=== PATIENT | male | born 1955 | race Caucasian/White ===

== ENCOUNTER 2017-04-22 13:18 | Inpatient (IN) | payer BC ==
[~2017-04-22] VITALS: Ht 170.2 cm; Wt 113.3 kg
--- NOTE | ~2017-04-22 | EEG ---
PATIENT:VALERIY MCCORD DATE OF SERVICE: 04/22/17 MEDICAL RECORD: [id number] DATE OF : 59 LOCATION:D.212 D.M2 ADMISSION DATE: 04/22/17 REFERRING PHYSICIAN: INTERPRETING PHYSICIAN: FELICITA ORNELAS MD DATE OF SERVICE: 04/23/2017 Electroencephalographic Report Referred by myself as an inpatient in room 2121. ELECTROENCEPHALOGRAM NUMBER: [id number]. DATE OF EXAMINATION: 04/23/2017 at 11:10 a.m. TECHNICAL DATA: This electroencephalographic recording consists of approximately 20 minutes of data collection utilizing the international 10/20 system of electrode placement and both referential and non-referential montages. Sixteen channels of electrocerebral recording are accompanied by a 17th channel dedicated to the electrocardiographic rhythm and 2 channels of electromyographic recording. Recording is performed in the awake and drowsy states utilizing activation by photic stimulation. ELECTROENCEPHALOGRAPHIC DATA: The awake state comprises approximately 40% of the recorded electrocerebral activity. Electromyographic artifact is prominent and rapid eye movements are seen. The posterior dominant background consists of a symmetric semi-arrhythmic waxing and waning 10-11 Hz alpha activity, which is suppressed by eye opening. The drowsy state comprises the remaining portion of the recorded electrocerebral activity. Electromyographic artifact is diminished and rapid eye movements are not seen. The posterior dominant background is relatively suppressed. Also seen is an intermittent irregular generalized and symmetric 2-3 Hz delta slowing, which occurs for periods of 1-2 seconds approximately once every 2-3 pages. No abnormal nor focal slowing is identified. No epileptiform discharges are seen. Photic stimulation induces no abnormal change in the recorded electrocerebral activity. INTERPRETATION: Normal (awake and drowsy). This is a normal electroencephalographic recording. TRANSINT:[id number] Voice Confirmation ID: [id number] DOCUMENT ID: [id number] ELECTROENCEPHALOGRAM REPORT [id number] VALERIY MCCORD FELICITA ORNELAS MD CC: [id number] DICTATION DATE: 04/24/17 075 TITLE MANAGER: 04/25/177 DIS IN 04/23/[address] [facility] [address] [place] [address]
[2017-04-22 13:59] LABS: BASOPHILS 0.3 % (0-2); EOSINOPHILS 5.4 % (0-7); HEMATOCRIT 44.2 % (42.0-54.0); HEMOGLOBIN 14.1 g/dL (13.5-17.5); IMMATURE GRANULOCYTES 0.1 % (0-5); LYMPHOCYTES 31.6 % (15-50); MCH 20.6 pg (26.0-34.0); MCHC 31.9 g/dL (31.0-37.0); MCV 64.7 fL (80.0-100.0); MEAN PLATELET VOLUME 10.3 fL (7.4-10.4); MONOCYTES 16.2 % (2-11); NEUTROPHILS 46.4 % (40-80); PLATELET COUNT 196 10x3/uL (130-400); WBC 7.4 10x3/uL (4.8-10.8)
[2017-04-22 14:23] VITALS: BP 154/99; Ht 170.2 cm; Wt 113.3 kg
[2017-04-22 14:28] LABS: ALBUMIN 3.6 g/dL (3.4-5.0); ALKALINE PHOSPHATASE 123 U/L (46-116); ALT (SGPT) 32 U/L (10-68); BILIRUBIN - TOTAL 0.38 mg/dL (0.2-1.3); CALC OSMOLALITY 280 mosm/kg (275-300); CALCIUM 8.3 mg/dL (8.5-10.1); CARBON DIOXIDE 29.4 mmol/L (21.0-32.0); CHLORIDE - SERUM 104 mmol/L (98-107); CKMB 0.8 U/L (0.0-3.6); CREATINE KINASE 104 UL (21-232); CREATININE - SERUM 1.1 mg/dL (0.6-1.3); GLUCOSE 119 mg/dL (74-106); POTASSIUM - SERUM 4.2 mmol/L (3.5-5.1); PROTEIN - SERUM 6.7 g/dL (6.4-8.2); SODIUM 140 mmol/L (136-145); UREA NITROGEN 14 mg/dL (7-18); eGFR NON AFRICAN AMERICAN 73 mL/min (90-120)
[2017-04-22 14:29] LABS: TROPONIN-I < 0.017 ng/mL (0.000-0.060)
--- NOTE | 2017-04-22 14:33 | NUR ---
DIRECT ADMIT FROM OFFICE. IV STARTED WITH 20 GA ON 1ST ATTEMPT. SL AT THIS TIME. ADMISSIOM HX AND ASSESSMENT DONE. NKA. EKG DONE. MONITOR SHOWS SR WITH OCC PVC AT RATE OF 63. WHEEZING ON RESP. WITH ACCULSATION MORE WHEEZING ON THE RIGHT SIDE. SIDE RAILS ARE PADDED FOR SEIZURE PRECAUTIONS ORDERED.
[2017-04-22 14:48] LABS: RBC 6.83 10x6/uL (4.20-6.10)
--- NOTE | 2017-04-22 14:52 | NUR ---
BURIAL NEEDS SALESPERSONCLERK Chio ALARCON CALLED [facility]'S OFFICE AND DR. PAN FOR CONSULTS.
--- NOTE | 2017-04-22 15:48 | NUR ---
CRITICAL LAB [facility] OF 6.83 CALLED TO [facility]'S OFFICE. PT MADE NPO FOR CT SCAN
--- NOTE | 2017-04-22 16:52 | NUR ---
BACK FROM CT. CAN EAT AND DRINK NOW.
--- NOTE | 2017-04-22 16:58 | NUR ---
SCDS EXPLAINED TO PT. HE REFUES. PT IS AMBULATORY IN ROOM.
[2017-04-22 19:23] LABS: BASOPHILS 0.6 % (0-2); EOSINOPHILS 5.5 % (0-7); HEMATOCRIT 43.9 % (42.0-54.0); HEMOGLOBIN 13.8 g/dL (13.5-17.5); IMMATURE GRANULOCYTES 0.1 % (0-5); MCH 20.4 pg (26.0-34.0); MCHC 31.4 g/dL (31.0-37.0); MCV 64.9 fL (80.0-100.0); MONOCYTES 14.6 % (2-11); NEUTROPHILS 42.2 % (40-80); PLATELET COUNT 181 10x3/uL (130-400); RDW 16.2 % (11.5-14.5); WBC 6.8 10x3/uL (4.8-10.8)
[2017-04-22 19:54] LABS: RBC 6.76 10x6/uL (4.20-6.10)
[2017-04-22 20:00] VITALS: BP 157/85
[2017-04-22 20:06] LABS: CKMB 0.8 U/L (0.0-3.6); CREATINE KINASE 85 UL (21-232); TROPONIN-I < 0.017 ng/mL (0.000-0.060)
--- NOTE | 2017-04-22 20:07 | NUR ---
PT RESTING IN BED. ALERT/ORIENTED. SR WITH PVCS ON TELEMETRY. NONLABORED RESPIRATIONS ON ROOM AIR. DRY/HACKING COUGH. PIV TO LEFT HAND WITH NS @ 100ML/HR. ASSESSMENT COMPLETED. REVIEWED PLAN OF CARE. CALL LIGHT IN REACH.
[2017-04-23] VITALS: BP 125/75
[2017-04-23 02:10] LABS: CKMB 0.8 U/L (0.0-3.6); CREATINE KINASE 96 UL (21-232)
[2017-04-23 02:11] LABS: TROPONIN-I < 0.017 ng/mL (0.000-0.060)
[2017-04-23 05:24] LABS: BASOPHILS 0.3 % (0-2); EOSINOPHILS 5.3 % (0-7); HEMATOCRIT 44.3 % (42.0-54.0); HEMOGLOBIN 13.9 g/dL (13.5-17.5); IMMATURE GRANULOCYTES 0.1 % (0-5); LYMPHOCYTES 38.5 % (15-50); MCH 20.3 pg (26.0-34.0); MCHC 31.4 g/dL (31.0-37.0); MCV 64.7 fL (80.0-100.0); MEAN PLATELET VOLUME 10.2 fL (7.4-10.4); MONOCYTES 13.7 % (2-11); NEUTROPHILS 42.1 % (40-80); PLATELET COUNT 177 10x3/uL (130-400); RDW 16.2 % (11.5-14.5); WBC 7.2 10x3/uL (4.8-10.8)
[2017-04-23 06:04] LABS: RBC 6.85 10x6/uL (4.20-6.10)
--- NOTE | 2017-04-23 06:14 | NUR ---
PT HAS RESTED WITH NO DISTRESS. IVF INFUSING. FAMILY X 1 AT BEDSIDE. NO REPORTS OF CHEST PAIN. CPOC. CALL LIGHT IN REACH.
[2017-04-23 06:16] LABS: ALBUMIN 3.2 g/dL (3.4-5.0); ALKALINE PHOSPHATASE 114 U/L (46-116); ALT (SGPT) 28 U/L (10-68); CALC OSMOLALITY 277 mosm/kg (275-300); CHLORIDE - SERUM 104 mmol/L (98-107); GLUCOSE 107 mg/dL (74-106); PROTEIN - SERUM 6.3 g/dL (6.4-8.2); SODIUM 139 mmol/L (136-145); UREA NITROGEN 12 mg/dL (7-18); eGFR NON AFRICAN AMERICAN 81 mL/min (90-120)
[2017-04-23 06:20] LABS: POTASSIUM - SERUM 4.9 mmol/L (3.5-5.1)
--- NOTE | 2017-04-23 07:20 | NUR ---
AM ROUNDS- PT IN BED, DENIES ANY NEEDS AT THIS TIME. LT HAND IV RUNNING NS AT 100. PT'S URINAL EMPTIED. CALL LIGHT IN REACH, NAD NOTED, WILL CONTINUE TO MONITOR.
[2017-04-23 09:06] VITALS: BP 122/83
--- NOTE | 2017-04-23 10:21 | NUR ---
CALLED [facility] AND INFORMED THEM THAT PT WANTED TO KNOW WHAT TIME HE WAS GOING FOR EEG, THEY INFOMRED ME THAT THEY WOULD BE HERE IN A FEW MINIUTES. WILL LET PT KNOW.
--- NOTE | 2017-04-23 11:03 | NUR ---
CALLED DR. HOGUE'S OFFICE AND LEFT A MESSAGE WITH HIS NURSE THAT PT HAS BEEN CLEARED BY CARDIOLOGY AND IS HAVING EEG DONE AT THIS TIME.
[2017-04-23 11:57] VITALS: BP 148/86
[2017-04-23] MEDS ORDERED: OMNICEF300 MG PO (12:13)
--- NOTE | 2017-04-23 14:17 | NUR ---
CALLED DR. ORNELAS'S OFFICE, LEFT A MESSAGE WITH HIS NURSE, WAITING DIRECTOR OF DIGITAL PLATFORMS BACK.
[2017-04-23] MEDS ORDERED: VENTOLIN HFA18 GM INH (14:38)
--- NOTE | 2017-04-23 15:14 | NUR ---
Patient Name: VALERIY MCCORD Admission Status: Elective Accout number: [id number] Admission Date: 04-22-2017 : 1955 Admission Diagnosis:CHEST PAIN, UNSPECIFIED Attending: CATALINA Current LOS: 1 Anticipated DC Date: 04-23-2017 Planned Disposition: Home Primary Insurance: [facility] [employer] [facility] Discharge Planning Comments: CM MET WITH PATIENT AND KULDIP IN ROOM FOR DISCHARGE PLANNING/NEEDS. PATIENT SAID HE PLANS TO RETURN HOME. HE EXPRESSED CONCERNS FOR NOT KNOWING WHAT IS WRONG WITH HIM, AND WHAT IS CAUSING HIS COUGH. HE IS THANKFUL FOR THE STUFF RULED OUT. HE DENIES ANY NEEDS AT DISCHARGE. QUESTIONING HOW LONG IT WILL TAKE FOR HIS PAPERS. IT WAS EXPLAINED THAT WE HAD JUST OFICIALLY GOT THE ORDERS AND IT WOULD TAKE A MOMENT FOR THE PAPERWORK TO BE PREPARED. EXPLAINED THAT I WOULD RELAY THAT THEY WERE READY TO GO. Income Tax Investigator: Jaclyn Bello Is the patient Alert and Oriented? Yes * How many steps to enter\exit or inside your home? 0 * PCP DR BRUMFIELD * Pharmacy [facility] * Preadmission Environment Home with Family * ADLs Independent * Equipment None * List name and contact numbers for known caregivers / representatives who currently or will assist patient after discharge: KULDIP MCCORD, , * Community resources currently utilized None * Additional services required to return to the preadmission environment? No * Can the patient safely return to the preadmission environment? Yes * Has this patient been hospitalized within the prior 30 days at any hospital? No
--- NOTE | 2017-04-23 15:38 | NUR ---
PROVIDED WRITTEN AND VERBAL DISCHARGE INSTRUTIONS TO PT AND , BOTH VERBALIZED UNDERSTANDING REGARDING INSTRUCTIONS. D/C LEFT HAND IV, TIP INTACT. PT READY FOR A WHEELCHAIR. 1548- PT LEFT UNIT VIA WHEELCHAIR, ACCOMPANIED BY , NAD NOTED.
[2017-04-25 18:10] LABS: HGB - A 94.5 % (94.0-98.0); HGB - A2 5.5 % (0.7-3.1); HGB - INTERPRETATION Note: (()); HGB - SOLUBILITY Negative (Negative)
== END 2017-04-23 15:51 | disposition home or self-care (01) | DRG 195 ==
LOC: D.M2 13:18
PROVIDERS: Psychiatry & Neurology Neurology; ADMIT Family Medicine
DX: J18.9 Pneumonia, unspecified organism (principal); E83.51 Hypocalcemia; Z87.891 Personal history of nicotine dependence; R07.89 Other chest pain; R55 Syncope and collapse

== ENCOUNTER → 2017-07-30 16:07 | Outpatient (CLI) | payer BC ==
[2017-04-22 14:23] VITALS: BMI 39.1
[~2017-07-30 16:07] MED LIST: OMNICEF300 MG PO; VENTOLIN HFA18 GM INH
== END | disposition home or self-care (01) ==
LOC: D.CT 16:07
DX: R05 Cough (principal)

== ENCOUNTER → 2019-09-08 14:00 | Outpatient (CLI) | payer BC ==
[2017-04-22 14:23] VITALS: BMI 39.1
== END | disposition home or self-care (01) ==
LOC: D.CT 08:00
PROVIDERS: ATTEND Internal Medicine Gastroenterology
DX: R89.7 Abnormal histological findings in specimens from other organs, systems and tissues (principal)

== ENCOUNTER 2021-01-26 06:34 | Emergency (ER) | payer BC ==
[~2021-01-26] VITALS: Ht 170.2 cm; Wt 125.0 kg
[2021-01-26 06:40] VITALS: Ht 170.2 cm; Wt 125.0 kg
[2021-01-26 07:08] LABS: BASOPHILS 0.2 % (0-2); EOSINOPHILS 2.5 % (0-7); HEMOGLOBIN 12.7 g/dL (13.5-17.5); IMMATURE GRANULOCYTES 0.1 % (0-5); LYMPHOCYTE ABS# 2.94 10x3/uL (1.32-3.57); LYMPHOCYTES 35.6 % (15-50); MCHC 31.8 g/dL (31.0-37.0); MCV 62.9 fL (80.0-100.0); MEAN PLATELET VOLUME 9.2 fL (7.4-10.4); MONOCYTES 10.9 % (2-11); NEUTROPHIL ABS# 4.19 10x3/uL (1.78-5.38); NEUTROPHILS 50.7 % (40-80); PLATELET COUNT 199 10x3/uL (130-400); RBC 6.36 10x6/uL (4.20-6.10); RDW 15.3 % (11.5-14.5); WBC 8.3 10x3/uL (4.8-10.8)
[2021-01-26 07:13] LABS: APTT 25.6 SECONDS (22.8-39.4); INR 1.13 (0.85-1.17); PROTIME 13.5 SECONDS (11.6-15.0)
[2021-01-26 07:14] LABS: CALC OSMOLALITY 284 mosm/kg (275-300); CALCIUM 8.3 mg/dL (8.5-10.1); CARBON DIOXIDE 24.9 mmol/L (21.0-32.0); CHLORIDE - SERUM 106 mmol/L (98-107); POTASSIUM - SERUM 3.6 mmol/L (3.5-5.1); SODIUM 140 mmol/L (136-145); UREA NITROGEN 20 mg/dL (7-18); eGFR NON AFRICAN AMERICAN 80 mL/min (90-120)
[2021-01-26 07:15] LABS: GLUCOSE 159 mg/dL (74-106)
[2021-01-26 07:30] LABS: ALBUMIN 3.6 g/dL (3.4-5.0); ALKALINE PHOSPHATASE 124 U/L (30-120); ALT (SGPT) 41 U/L (10-68); CKMB 1.9 U/L (0.0-3.6); CREATINE KINASE 157 UL (21-232); MAGNESIUM - SERUM 1.9 mg/dL (1.8-2.4); PROTEIN - SERUM 6.8 g/dL (6.4-8.2)
[2021-01-26 07:32] LABS: TROPONIN-I < 0.017 ng/mL (0.000-0.060)
[2021-01-26 10:07] LABS: BILIRUBIN NEGATIVE (NEGATIVE); KETONE NEGATIVE (NEGATIVE); NITRITE NEGATIVE (NEGATIVE); UROBILINOGEN NORMAL mg/dL (< 2)
[2021-01-26] MEDS ORDERED: MECLIZINE HCL25 MG PO (11:56)
[2021-01-26] MEDS ORDERED: ZOFRAN ODT4 MG/UDTAB PO (11:56)
[2021-01-26 12:55] VITALS: BP 146/76
== END 2021-01-26 12:10 | disposition home or self-care (01) ==
LOC: D.ER 06:34
PROVIDERS: Emergency Medicine; Family Medicine
DX: R42 Dizziness and giddiness (principal); R11.0 Nausea; H93.19 Tinnitus, unspecified ear; R73.9 Hyperglycemia, unspecified

== ENCOUNTER → 2021-01-26 15:50 | Outpatient (CLI) | payer BC ==
[2021-01-26 06:40] VITALS: BMI 43.2
[~2021-01-26 15:50] MED LIST changes: +MECLIZINE HCL25 MG PO; +ZOFRAN ODT4 MG/UDTAB PO
== END | disposition home or self-care (01) ==
LOC: D.CT 15:50
PROVIDERS: ATTEND Family Medicine
DX: R10.11 Right upper quadrant pain (principal)

== ENCOUNTER → 2021-02-27 14:51 | Outpatient (CLI) | payer BC ==
[2021-01-26 06:40] VITALS: BMI 43.2
== END | disposition home or self-care (01) ==
LOC: D.US 14:51
PROVIDERS: ATTEND Internal Medicine Interventional Cardiology
DX: R07.9 Chest pain, unspecified (principal)

== ENCOUNTER → 2021-03-21 13:27 | Outpatient (CLI) | payer BC ==
[2021-01-26 06:40] VITALS: BMI 43.2
--- NOTE | ~2021-03-21 | EC ---
PATIENT:VALERIY MCCORD DATE OF SERVICE: 03/21/21 SEX: M MEDICAL RECORD: [id number] DATE OF : 59 LOCATION:[facility] AGE OF PATIENT: 65 ADMISSION DATE: 03/21/21 REFERRING PHYSICIAN: INTERPRETING PHYSICIAN: CÉSAR MARRUFO MD ECHOCARDIOGRAM REPORT ECHO CHARGES 4 ECHO COMPLETE Date: 03/21/21 CLINICAL DIAGNOSIS: ESS. HTN/HEART MURMUR CHEST PAIN, DYSPNEA ON EXERTION ECHOCARDIOGRAPHIC MEASUREMENTS (adult normal given) AC root (d.<3.7cm) 3.7 cm LV Septum d (<1.2 cm> 1.4 cm Valve Excursion 1.8 cm LV Septum (systole) 1.8 cm Left Atria (s.<4.0cm> 3.4 cm LVPW d(<1.2cm) 1.6 cm RV (d.<2.3cm) 4.5 cm LVPW (sytole) 1.8 cm LV diastole(<5.6CM) 4.6 cm MV E-F(>70mm/sec) cm LV systole 2.5 cm LVOT Diameter 1.9 cm MV exc.(>10mm) 1.2 cm Est.ejection fraction (50-75%) % DOPPLER: LVIT cm/sec A 89.0 cm/sec E 58.0 cm/sec LA cm/sec RVSP 17 mmHg LVOT 79 cm/sec AOP1/2T m/s Asc. Ao 117 cm/sec RVOT 42 cm/sec RA cm/sec PA 101 cm/sec AV Gradient Peak 5.47 mmHg AV Mean 2.67 mmHg AV Area 2.2 cm MV Gradient Peak 2.61 mmHg MV Mean 1.24 mmHg MV Area cm COMMENTS: Fixed Income Portfolio Manager: 2 JOSUÉ FERGUSON Guide Dog Trainer: 3 Dr. Byers TAPE# PACS Pericardial Effusion N DATE OF SERVICE: Adequate 2D, color-flow imaging, spectral Doppler, and M-Mode FINDINGS: Mild LVH. LV internal dimension is normal. Wall motion is normal. EF is greater than or equal to 55%. Aortic valve is tricuspid. No evidence of stenosis by Doppler interrogation. Left atrium is normal. Mitral valve shows no prolapse. Trace MR. Right-sided chambers are grossly normal. Trace TR. ECHOCARDIOGRAM REPORT [id number] VALERIY MCCORD TRANSINT:[id number] Voice Confirmation ID: [id number] DOCUMENT ID: [id number] CÉSAR MARRUFO MD CC: [id number] DICTATION DATE: 03/23/2138 MONUMENT SETTER HELPER: 03/23/21 1151 DEP CLI 03/21/21 [id number] [place] [address]
--- NOTE | 2021-03-22 12:15 | ST ---
PATIENT:VALERIY MCCORD MEDICAL RECORD: [id number] SEX: M LOCATION:[facility] ORDER #: ADMISSION DATE: 03/21/21 AGE OF PATIENT: 65 REFERRING PHYSICIAN: INTERPRETING PHYSICIAN: CÉSAR MARRUFO MD DATE OF SERVICE: 03/21/2021 TREADMILL STRESS TEST Baseline ECG is normal. Exercised for 6 minutes 40 seconds on Dae protocol. Maximum heart rate greater than 95% max predicted. No ECG changes of ischemia. No further progression of underlying arrhythmias. Mild hypertensive response to exercise. Fair exercise tolerance for age. IMPRESSION: Negative treadmill stress test with mild hypertensive response and no worsening arrhythmias. TRANSINT:[id number] Voice Confirmation ID: [id number] DOCUMENT ID: [id number] CÉSAR MARRUFO MD at 1215 CC: [id number] DICTATION DATE: 03/21/21 1531 ORACLE HRMS CONSULTANT: 03/22/21 0411 DEP CLI 03/21/21 [id number] [place] [address]
== END | disposition home or self-care (01) ==
LOC: D.HCCECHO 13:27
PROVIDERS: ATTEND Internal Medicine Interventional Cardiology
DX: I10 Essential (primary) hypertension (principal)